=== PATIENT | female | born 1940 | race African-American/Black ===

== ENCOUNTER 2019-05-25 00:05 | Inpatient (IN) | payer OTHER ==
[2019-05-25] MEDS ORDERED: NOREPINEPHRINE 4mg/D5W 250mL 4 MG/250 ML BAG IV ONE ×3 (00:29→06:16)
[2019-05-25 01:00] LABS: Absolute Lymphocytes (CBC) 3.2 K/uL (0.7-4.9); Basophils % 0.4 % (0-1.3); Lymphocytes % 36.4 % (15.3-44.8); MPV 10.3 fL (7.6-11.3); RBC Red Blood Cell Count 3.27 M/uL (3.86-4.86)
[2019-05-25 01:03] LABS: Protime INR 1.18
[2019-05-25 01:12] LABS: Blood Gas Oxyhemoglobin 96.4 % (94-97); Blood O2 Saturation 97.1 % (92-98.5)
--- NOTE | 2019-05-25 01:12 | EDPHYS ---
Physician Documentation [facility] Name: Astrid Auguste Age: 79 yrs Sex: Female : 1940 Arrival Date: 05/25/2019 Time: 00:07 Bed 3 Private MD: ED Physician Steven Boles HPI: 05/25 03:25 This 79 yrs old Black Female presents to ER via EMS with complaints of CPR. kdr 03:25 Preceding the arrest, the patient collapsed, was dyspneic. The arrest occurred at home. kdr Pre-hospital course: The arrest was witnessed Bystanders at the scene performed CPR. EMS care prior to arrival: initiation of ACLS, peripheral IV, intubation with a LMA, oxygen, by BVM to assist ventilations. 0 minutes elapsed prior to ACLS. ACLS has been in progress for 35 minutes. It is unknown whether or not the patient has had similar symptoms in the past. It is unknown whether or not the patient has recently seen a physician. Historical: - Allergies: 00:58 Unable to obtain; tr5 - Home Meds: 00:58 Unable to obtain [Active]; tr5 - PMHx: 00:58 Unable to obtain; tr5 - PSHx: 00:58 Unable to obtain; tr5 - Immunization history:: Unable to obtain. - Social history:: Smoking status: unknown. - Code Status:: unknown. - Ebola Screening: : Unable to complete screening because patient is unresponsive. ROS: 03:25 Constitutional: Unobtainable secondary to unreponsive and intubated Eyes: Negative for kdr injury, pain, redness, and discharge, ENT: Negative for injury, pain, and discharge, Neck: Negative for injury, pain, and swelling, Cardiovascular: Negative for chest pain, palpitations, and edema, Abdomen/GI: Negative for abdominal pain, nausea, vomiting, diarrhea, and constipation, Back: Negative for injury and pain, : Negative for injury, bleeding, discharge, and swelling, MS/Extremity: Negative for injury and deformity, Skin: Negative for injury, rash, and discoloration, Neuro: Negative for headache, weakness, numbness, tingling, and seizure activity. Psych: Negative for depression, anxiety, suicide ideation, homicidal ideation, and hallucinations, Allergy/Immunology: Negative for hives, rash, and allergies, Endocrine: Negative for neck swelling, polydipsia, polyuria, polyphagia, and marked weight changes, Hematologic/Lymphatic: Negative for swollen nodes, abnormal bleeding, and unusual bruising. 03:25 Constitutional: Negative for fever, chills, and weight loss. 03:25 Respiratory: Positive for shortness of breath. Exam: 03:29 Constitutional: This is a well developed, well nourished patient who is unresponsive. kdr Head/Face: Normocephalic, atraumatic. Eyes: Pupils equal round and poorly reactive to light, Lids and lashes normal. . Periorbital areas with no swelling, redness, or edema. Neck: Trachea midline, no thyromegaly or masses palpated, and no cervical lymphadenopathy. Supple, full range of motion without nuchal rigidity, or vertebral point tenderness. No Meningismus. Chest/axilla: Normal chest wall appearance and motion. Nontender with no deformity. No lesions are appreciated. Abdomen/GI: Soft, non-tender, with normal bowel sounds. No distension or tympany. No guarding or rebound. No evidence of tenderness throughout. Back: No spinal tenderness. No costovertebral tenderness. Full range of motion. Skin: Warm, dry with normal turgor. Normal color with no rashes, no lesions, and no evidence of cellulitis. MS/ Extremity: Pulses equal, no cyanosis. Neurovascular intact. Full, normal range of motion. 03:29 Cardiovascular: Rate: variable. 03:29 Respiratory: Ventilated . 04:32 Cardiovascular: Rhythm: irregular, Pulses: weak, not palpable, Edema: is not kdr appreciated. Vital Signs: 00:10 Pulse 53; Resp 16 A; tr5 00:14 BP 104 / 68; Pulse 73; Resp 15 A; tr5 00:17 BP 148 / 48; Pulse 71; Resp 16 A; Pulse Ox 100% on ETT ambu; tr5 00:24 BP 112 / 95; Pulse 67; Resp 15 A; Temp 93.5(C); Pulse Ox 99% on ETT ambu; tr5 00:27 BP 55 / 33; Pulse 62; Resp 14 A; Temp 95.4(C); Pulse Ox 97% on ETT vent; tr5 00:31 BP 42 / 24; Pulse 52 MON; Resp 14; Temp 97.3(C); Pulse Ox 94% on ETT vent; tr5 00:38 BP 121 / 46; Pulse 81 MON; Resp 22 A; Temp 98.3(C); Pulse Ox 100% on ETT vent; tr5 00:45 BP 69 / 38; Pulse 55 MON; Resp 16 A; Temp 98.3(C); Pulse Ox 100% on ETT vent; tr5 01:00 BP 73 / 56; Pulse 73 MON; Resp 16 A; Temp 98.4(C); Pulse Ox 99% on ETT vent; tr5 01:10 BP 103 / 44; Pulse 50 MON; Resp 16 A; Temp 98.2(C); Pulse Ox 100% on ETT vent; tr5 01:20 BP 125 / 54; Pulse 58; Resp 16 A; Temp 97.9(C); Pulse Ox 99% on ETT vent; tr5 01:30 BP 117 / 46; Pulse 61; Resp 16; Temp 97(C); Pulse Ox 99% on ETT vent; tr5 01:45 BP 117 / 45; Pulse 64; Resp 16 A; Temp 96.3(C); Pulse Ox 100% on ETT vent; tr5 02:00 BP 118 / 46; Pulse 60 MON; Resp 18 A; Temp 96.1(C); Pulse Ox 100% on ETT vent; tr5 02:15 BP 118 / 34; Pulse 56; Resp 18 A; Temp 96.1(C); Pulse Ox 100% on ETT vent; tr5 02:30 BP 118 / 49; Pulse 59; Resp 16 A; Temp 96.1(C); Pulse Ox 100% on ETT vent; tr5 02:45 BP 117 / 43; Pulse 58; Resp 16 A; Temp 96.2(C); Pulse Ox 100% on ETT vent; tr5 03:00 BP 111 / 42; Pulse 45; Resp 16 A; Pulse Ox 100% on ETT vent; tr5 03:15 BP 107 / 46; Pulse 57; Resp 17 A; Temp 96.2(C); Pulse Ox 99% on ETT vent; tr5 Jack Coma Score: 00:30 Eye Response: none(1). Verbal Response: none(1). Motor Response: none(1). Total: 3. tr5 Ventilator: 00:14 Fi02: 100%; Rate: 14min; Peep: 5cm; ET tube: 7.5 mm; tr5 00:45 Fi02: 100%; Rate: 16min; Peep: 5cm; ET tube: 7.5 mm; tr5 Procedures: 03:29 CPR: See CPR flow sheet. Initial patient assessment: unresponsive, intubated, The kdr presenting cardiac rhythm is PEA. the patient was intubated prior to arrival, ventilations per thumper, Tomás tube [employer], Compressions: began prior to arrival. Meds given: Epinephrine X 3. Intubation: Ventilated with 100% NRB prior to procedure. O2 saturation prior to procedure was 90 %. Intubated orally using # 4 Jazlyn blade with 7.0 mm ETT. Successful on third attempt. Ventilated with Ambu bag. ventilator. Tube secured with ETT medeiros at center of mouth measured 23 cm at teeth. Placement verified by CO2 detector with (+) color change, auscultating bilateral breath sounds, O2 saturation after procedure was 100 %. Patient tolerated well. MDM: 01:11 Patient medically screened. kdr 03:29 Data reviewed: vital signs, nurses notes, lab test result(s), radiologic studies. kdr Counseling: I had a detailed discussion with the patient and/or guardian regarding: the historical points, exam findings, and any diagnostic results supporting the discharge/admit diagnosis, lab results, radiology results, the need for further work-up and treatment in the hospital. 05/25 00:27 Order name: Basic Metabolic Panel [facility] 05/25 00:27 Order name: CBC with Diff [facility] 05/25 00:27 Order name: LFT's [facility] 05/25 00:27 Order name: Magnesium [facility] 05/25 00:27 Order name: NT PRO-BNP [facility] 05/25 00:27 Order name: PT-INR; Complete Time: 02:02 [facility] 05/25 00:27 Order name: Troponin (emerg Dept Use Only) [facility] 05/25 01:07 Order name: Manual Differential [facility] 05/25 01:10 Order name: ABG Arterial Blood Gas; Complete Time: 02:02 [facility] 05/25 01:18 Order name: Glucose, Ancillary Testing; Complete Time: 02:02 [facility] 05/25 02:01 Order name: CKMB Creatine Kinase MB [facility] 05/25 02:02 Order name: Protime (+INR) [facility] 05/25 02:02 Order name: T4 Free [facility] 05/25 00:27 Order name: XRAY Chest (1 view) [facility] 05/25 02:02 Order name: Thyroid Stimulating Hormone [facility] 05/25 02:02 Order name: CKMB Creatine Kinase MB [facility] 05/25 02:02 Order name: CKMB Creatine Kinase MB [facility] 05/25 02:02 Order name: Troponin I [facility] 05/25 02:02 Order name: Troponin I [facility] 05/25 02:02 Order name: Troponin I [facility] 05/25 00:27 Order name: EKG; Complete Time: 00:29 05/25 00:27 Order name: Cardiac monitoring; Complete Time: 01:38 05/25 00:27 Order name: EKG - Nurse/Tech; Complete Time: 01:38 05/25 00:27 Order name: IV Saline Lock; Complete Time: 01:38 05/25 00:27 Order name: Labs collected and sent; Complete Time: 01:38 05/25 00:27 Order name: O2 Per Protocol; Complete Time: 01:38 05/25 00:27 Order name: O2 Sat Monitoring; Complete Time: 01:37 05/25 02:02 Order name: NPO [facility] 05/25 02:03 Order name: EKG Electrocardiogram [facility] 05/25 02:03 Order name: EKG Electrocardiogram [facility] 05/25 02:03 Order name: EKG Electrocardiogram [facility] Administered Medications: 00:08 Drug: EPINEPHrine 0.1mg/mL 1:10,000 1 mg Route: IVP; Site: left antecubital; tr5 00:10 Follow up: Response: No change in condition tr5 00:08 Drug: NS 0.9% 1000 ml Route: IV; Rate: 1 bolus; Site: left antecubital; tr5 00:13 Drug: EPINEPHrine 0.1mg/mL 1:10,000 1 mg Route: IVP; Site: left antecubital; tr5 00:15 Follow up: Response: No adverse reaction tr5 00:33 Drug: EPINEPHrine 0.1mg/mL 1:10,000 1 mg Route: IVP; Site: left antecubital; tr5 00:40 Follow up: Response: No adverse reaction tr5 00:36 Drug: Levophed (4 mg/250 mL D5W 4 mcg/min Route: IV; Rate: calculated rate; Site: right tr5 femoral; 00:44 Drug: Sodium Bicarbonate 1 amp Route: IVP; Site: left antecubital; tr5 00:50 Follow up: Response: No adverse reaction tr5 00:46 Drug: EPINEPHrine 0.1mg/mL 1:10,000 1 mg Route: IVP; Site: left antecubital; tr5 00:50 Follow up: Response: No adverse reaction tr5 00:50 Drug: Dopamine drip 5 mcg/kg/min - (DOPamine 400 mg, D5W 250 ml) Route: IV; Rate: tr5 calculated rate; Site: right femoral; 01:05 Drug: Sodium Bicarbonate 2 amp Route: IVP; Site: left antecubital; tr5 01:41 Follow up: Response: No adverse reaction tr5 Point of Care Testing: Blood Glucose: 00:58 Blood Glucose: 356 mg/dL; tr5 Ranges: Critical Glucose Levels:Adult <50 mg/dl or >400 mg/dl <40 mg/dl or >180 mg/dl Disposition: 04:37 Critical Care:. kdr Disposition: 05/25/19 01:11 Hospitalization ordered by Cesar Medel for Inpatient Admission. Preliminary diagnosis is Cardiopulmonary Arrest. - Bed requested for Intensive Care Unit. - Status is Inpatient Admission. tr5 - Condition is Critical. - Problem is new. - Symptoms have improved. UTI on Admission? No Critical care time excluding procedures: 04:37 Critical care time: Bedside Care: 40 minutes, Consultation: 10 minutes, Family kdr Intervention: 10 minutes. Total time: 60 minutes Signatures: Dispatcher [employer] [facility] Steven Boles MD MD kdr Garcia, Cindy, RN RN cg Bibiana Trevino Tommie, RN RN tr5 Corrections: (The following items were deleted from the chart) 02:04 02:01 Blood Culture ordered. [facility] 02:19 01:11 Hospitalization Ordered by Cesar Medel for Inpatient Admission. Preliminary cg diagnosis is Cardiopulmonary Arrest. Bed requested for Intensive Care Unit. Status is Inpatient Admission. Condition is Critical. Problem is new. Symptoms have improved. UTI on Admission? No. kdr 03:41 02:19 05/25/2019 01:11 Hospitalization Ordered by Cesar Medel for Inpatient tr5 Admission. Preliminary diagnosis is Cardiopulmonary Arrest. Bed requested for Intensive Care Unit. Status is Inpatient Admission. Condition is Critical. Problem is new. Symptoms have improved. UTI on Admission? No. cg 04:37 03:29 Constitutional: This is a well developed, well nourished patient who is awake, kdr alert, and in no acute distress. Head/Face: Normocephalic, atraumatic. Eyes: Pupils equal round and reactive to light, extra-ocular motions intact. Lids and lashes normal. Conjunctiva and sclera are non-icteric and not injected. Cornea within normal limits. Periorbital areas with no swelling, redness, or edema. Neck: Trachea midline, no thyromegaly or masses palpated, and no cervical lymphadenopathy. Supple, full range of motion without nuchal rigidity, or vertebral point tenderness. No Meningismus. Chest/axilla: Normal chest wall appearance and motion. Nontender with no deformity. No lesions are appreciated. Abdomen/GI: Soft, non-tender, with normal bowel sounds. No distension or tympany. No guarding or rebound. No evidence of tenderness throughout. Back: No spinal tenderness. No costovertebral tenderness. Full range of motion. Skin: Warm, dry with normal turgor. Normal color with no rashes, no lesions, and no evidence of cellulitis. MS/ Extremity: Pulses equal, no cyanosis. Neurovascular intact. Full, normal range of motion. kdr
--- NOTE | 2019-05-25 01:12 | ER ---
Nurse's Notes [facility] Name: Astrid Auguste Age: 79 yrs Sex: Female : 1940 Arrival Date: 05/25/2019 Time: 00:07 Bed 3 Private MD: Diagnosis: Cardiopulmonary Arrest Presentation: 05/25 00:02 Presenting complaint: EMS states: Pt called EMS and upon arrival patient was alone and tr5 in respiratory distress. Upon arrival pt appeared to be choking and was foaming at the mouth. Witnessed cardiac arrest and pt was down at 2327. CPR was started. 5 rounds of epi given. Size 5 david tube inserted. 20 G IV to L AC initiated. BG 228. Pt arrived to ER with Jonny 3 machine on and compressions in progress. Care prior to arrival: Oral airway placed, CPR via thumper Placed on backboard. Medication(s) given: Epi X5 IV initiated. 20 GA, in the left antecubital area. 00:02 Method Of Arrival: EMS: [facility] tr5 00:02 Acuity: CYNDI 1 tr5 00:02 Compressions began prior to arrival. tr5 00:02 Transition of care: patient was not received from another setting of care. Onset of tr5 symptoms was May 25, 2019. Risk Assessment: Do you want to hurt yourself or someone else? Unable to obtain. Initial Sepsis Screen: Does the patient have a suspected source of infection? No. Patient's initial sepsis screen is negative. 01:36 Initial Sepsis Screen: Does the patient meet any 2 criteria?. tr5 Triage Assessment: 00:30 Pain: Unable to use pain scale. Patient is unresponsive. tr5 Historical: - Allergies: 00:58 Unable to obtain; tr5 - Home Meds: 00:58 Unable to obtain [Active]; tr5 - PMHx: 00:58 Unable to obtain; tr5 - PSHx: 00:58 Unable to obtain; tr5 - Immunization history:: Unable to obtain. - Social history:: Smoking status: unknown. - Code Status:: unknown. - Ebola Screening: : Unable to complete screening because patient is unresponsive. Screenin:45 Abuse screen: Unable to obtain. Nutritional screening: Unable to obtain. Tuberculosis tr5 screening: Unable to obtain. 00:45 Fall Risk None identified. tr5 Assessment: 00:02 CPR assessment: unresponsive, intubated, pulses absent w/ compressions. Cardiac rhythm tr5 is PEA. General: Appears distressed, Behavior is unresponsive. Neuro: Level of Consciousness is unresponsive, Oriented to none. EENT: No deficits noted. Cardiovascular: Heart tones absent Pulses are absent in right radial artery, right brachial artery, right femoral artery, right posterior tibial artery, left radial artery, left brachial artery, left femoral artery, left posterior tibial artery, left carotid pulse and right carotid pulse Rhythm is PEA. Respiratory: Airway via oral intubation Breath sounds are absent bilaterally. GI:. GI: No signs and/or symptoms were reported involving the gastrointestinal system. : No signs and/or symptoms were reported regarding the genitourinary system. Derm: Skin is clammy, Skin is pale, Skin temperature is cool. 01:00 Reassessment: Pt lying quietly, intubated and unresponsive. ET tube in place. NG tube tr5 in L nares to low intermittent suction. IV sites patent and intact. Coffman catheter in place with no drainage noted. Will continue to monitor. 02:00 Reassessment: Pt's family at bedside. Pt laying in bed quiet and unresponsive. ET tube tr5 in place. NG tube in place. IV lines patent and intact. Will continue to monitor. 03:00 Reassessment: Pt lying quietly in bed. Pt's family at bedside. Pt is intubated and tr5 unresponsive. ET tube in place. NG tube in place. IV lines patent and intact. Will continue to monitor. Vital Signs: 00:10 Pulse 53; Resp 16 A; tr5 00:14 BP 104 / 68; Pulse 73; Resp 15 A; tr5 00:17 BP 148 / 48; Pulse 71; Resp 16 A; Pulse Ox 100% on ETT ambu; tr5 00:24 BP 112 / 95; Pulse 67; Resp 15 A; Temp 93.5(C); Pulse Ox 99% on ETT ambu; tr5 00:27 BP 55 / 33; Pulse 62; Resp 14 A; Temp 95.4(C); Pulse Ox 97% on ETT vent; tr5 00:31 BP 42 / 24; Pulse 52 MON; Resp 14; Temp 97.3(C); Pulse Ox 94% on ETT vent; tr5 00:38 BP 121 / 46; Pulse 81 MON; Resp 22 A; Temp 98.3(C); Pulse Ox 100% on ETT vent; tr5 00:45 BP 69 / 38; Pulse 55 MON; Resp 16 A; Temp 98.3(C); Pulse Ox 100% on ETT vent; tr5 01:00 BP 73 / 56; Pulse 73 MON; Resp 16 A; Temp 98.4(C); Pulse Ox 99% on ETT vent; tr5 01:10 BP 103 / 44; Pulse 50 MON; Resp 16 A; Temp 98.2(C); Pulse Ox 100% on ETT vent; tr5 01:20 BP 125 / 54; Pulse 58; Resp 16 A; Temp 97.9(C); Pulse Ox 99% on ETT vent; tr5 01:30 BP 117 / 46; Pulse 61; Resp 16; Temp 97(C); Pulse Ox 99% on ETT vent; tr5 01:45 BP 117 / 45; Pulse 64; Resp 16 A; Temp 96.3(C); Pulse Ox 100% on ETT vent; tr5 02:00 BP 118 / 46; Pulse 60 MON; Resp 18 A; Temp 96.1(C); Pulse Ox 100% on ETT vent; tr5 02:15 BP 118 / 34; Pulse 56; Resp 18 A; Temp 96.1(C); Pulse Ox 100% on ETT vent; tr5 02:30 BP 118 / 49; Pulse 59; Resp 16 A; Temp 96.1(C); Pulse Ox 100% on ETT vent; tr5 02:45 BP 117 / 43; Pulse 58; Resp 16 A; Temp 96.2(C); Pulse Ox 100% on ETT vent; tr5 03:00 BP 111 / 42; Pulse 45; Resp 16 A; Pulse Ox 100% on ETT vent; tr5 03:15 BP 107 / 46; Pulse 57; Resp 17 A; Temp 96.2(C); Pulse Ox 99% on ETT vent; tr5 Jack Coma Score: 00:30 Eye Response: none(1). Verbal Response: none(1). Motor Response: none(1). Total: 3. tr5 ED Course: 00:02 Inserted saline lock: 20 gauge in left antecubital area, using aseptic technique. tr5 Accessed Central line. 00:02 Arm band placed on. tr5 00:07 Patient arrived in ED. fc 00:07 EKG done, by ED staff. tr5 00:14 Assisted provider with central line placement. Set up central line tray. Triple lumen tr5 line placed in right femoral. Line placed by Steven Boles MD Placement verified by CXR, Dressed with Tegaderm, Blood was collected. Patient tolerated. 00:14 Assisted provider with intubation using 7.5 mm ETT via oral route. ET tube secured at tr5 23cm at the teeth. Intubated by Steven Bloes MD Placement verified by CO2 detector w/ + color change, Patient tolerated. Intubation: 7.5 Fr. ETT placed orally. Performed by Steven Boles MD Successful on first attempt. Placement verified by CO2 detector w/ + color change, auscultating bilateral breath sounds, Ventilated with ventilator. 00:18 NGT: inserted 14 Fr. via left nare. tr5 00:19 Speci-cath kit inserted, using sterile technique, 16 Fr., returned poly urine. tr5 00:20 marketing rotation associate on. Pulse ox on. NIBP on. tr5 00:40 ABG drawn. by RT staff. tr5 00:42 Edil Ramirez, RN is Primary Nurse. tr5 00:45 Patient has correct armband on for positive identification. Placed in gown. Bed in low tr5 position. Adult w/ patient. 00:46 Steven Boles MD is Attending Physician. kdr 00:54 Triage completed. tr5 00:55 Initial lab(s) drawn, by ED staff, sent to lab. tr5 00:55 X-ray(s) taken. tr5 00:57 X-ray completed. Portable x-ray completed in exam room. Patient tolerated procedure kw well. 00:59 XRAY Chest (1 view) In Process Unspecified. EDMS 01:10 Cesar Medel is Hospitalizing Provider. kdr 02:02 Warm blanket given. Elaine lazo applied to patient. tr5 03:40 Patient admitted, IV remains in place. tr5 Administered Medications: 00:08 Drug: EPINEPHrine 0.1mg/mL 1:10,000 1 mg Route: IVP; Site: left antecubital; tr5 00:10 Follow up: Response: No change in condition tr5 00:08 Drug: NS 0.9% 1000 ml Route: IV; Rate: 1 bolus; Site: left antecubital; tr5 00:13 Drug: EPINEPHrine 0.1mg/mL 1:10,000 1 mg Route: IVP; Site: left antecubital; tr5 00:15 Follow up: Response: No adverse reaction tr5 00:33 Drug: EPINEPHrine 0.1mg/mL 1:10,000 1 mg Route: IVP; Site: left antecubital; tr5 00:40 Follow up: Response: No adverse reaction tr5 00:36 Drug: Levophed (4 mg/250 mL D5W 4 mcg/min Route: IV; Rate: calculated rate; Site: right tr5 femoral; 00:44 Drug: Sodium Bicarbonate 1 amp Route: IVP; Site: left antecubital; tr5 00:50 Follow up: Response: No adverse reaction tr5 00:46 Drug: EPINEPHrine 0.1mg/mL 1:10,000 1 mg Route: IVP; Site: left antecubital; tr5 00:50 Follow up: Response: No adverse reaction tr5 00:50 Drug: Dopamine drip 5 mcg/kg/min - (DOPamine 400 mg, D5W 250 ml) Route: IV; Rate: tr5 calculated rate; Site: right femoral; 01:05 Drug: Sodium Bicarbonate 2 amp Route: IVP; Site: left antecubital; tr5 01:41 Follow up: Response: No adverse reaction tr5 Point of Care Testing: Blood Glucose: 00:58 Blood Glucose: 356 mg/dL; tr5 Ranges: Ventilator: 00:14 Fi02: 100%; Rate: 14min; Peep: 5cm; ET tube: 7.5 mm; tr5 00:45 Fi02: 100%; Rate: 16min; Peep: 5cm; ET tube: 7.5 mm; tr5 Outcome: 00:50 Outcome Resuscitation successful tr5 01:11 Decision to Hospitalize by Provider. kdr 03:30 Patient left the ED. tr5 03:39 Admitted to ICU accompanied by nurse, accompanied by tech, via stretcher, with oxygen, tr5 on monitor, with chart, Report called to Alexis CAMPO 03:39 Condition: stable tr5 03:39 Instructed on the need for admit. Signatures: Dispatcher [employer] [facility] Steven Boles MD MD kdr Chretien, Felicia, RN RN Hui Lewis Tommie, RN RN tr5 Corrections: (The following items were deleted from the chart) 01:20 00:44 Sodium Bicarbonate 1 amp IVP in left antecubital tr5 tr5 01:35 00:45 BP 69 / 38; Pulse 55bpm; MonitorResp 17bpm; Assisted; Pulse Ox 100% ET / tr5 Ventilator; Temp 98.3F Catheter; tr5 01:35 01:00 BP 73 / 56; Pulse 73bpm; MonitorResp 15bpm; Assisted; Pulse Ox 99% ET / tr5 Ventilator; tr5 01:58 01:00 BP 73 / 56; Pulse 73bpm; MonitorResp 16bpm; Assisted; Pulse Ox 99% ET / tr5 Ventilator; tr5 :58 01:20 BP 125 / 54; Pulse 58bpm; Resp 16bpm; Assisted; Pulse Ox 99% ET / Ventilator; tr5 tr5 :58 01:30 BP 117 / 46; Pulse 61bpm; Resp 16bpm; Pulse Ox 99% ET / Ventilator; tr5 tr5 01:58 01:10 BP 103 / 44; Pulse 50bpm; MonitorResp 16bpm; Assisted; Pulse Ox 100% ET / tr5 Ventilator; tr5 02:01 01:59 BP 117 / 45; Pulse 64bpm; Resp 16bpm; Assisted; Pulse Ox 100% ET / Ventilator; tr5 Temp 96.3F Catheter; tr5 02:16 02:00 Reassessment: No changes from previously documented assessment. Patient and/or tr5 family updated on plan of care and expected duration. Pain level reassessed. tr5 02:16 01:30 Reassessment: tr5 tr5 02:16 01:00 Reassessment: No changes from previously documented assessment. Patient and/or tr5 family updated on plan of care and expected duration. Pain level reassessed. tr5 02:26 00:02 Presenting complaint: EMS states: Pt called EMS and only one at scene. Upon tr5 arrival pt appeared to be choking and was foaming at the mouth. Witnessed cardiac arrest and pt was down at 2327. CPR was started. 5 rounds of epi given. Size 5 david tube inserted. 20 G IV to L AC initiated. BG 228. Pt arrived to ER with Jonny 3 machine on and compressions in progress. tr5 02:00 Reassessment: No changes from previously documented assessment. Patient and/or tr5 family updated on plan of care and expected duration. Pain level reassessed. Coffman catheter in place. NG tube in place. IV and central line patent and intact. Will continue to monitor. tr5 01:00 Reassessment: No changes from previously documented assessment. Patient and/or tr5 family updated on plan of care and expected duration. Pain level reassessed. Pt sedated and intubated. Pt does not appear to be in any distress. Will continue to monitor. tr5 02:00 Reassessment: Pt's family at bedside. Pt laying in bed quiet and unresponsive. ET tr5 tube in place. Lung sounds clear bilaterally. NG tube in place. IV lines patent and intact. Will continue to monitor. tr5 01:00 Reassessment: Pt lying quietly, intubated and unresponsive. Pt's lungs are clear tr5 bilaterally. ET tube in place. NG tube in L nares to low intermittent suction. IV sites patent and intact. Coffman catheter in place with no drainage noted. Will continue to monitor. tr5 03: 03:41 Patient left the ED. tr5 tr5
[2019-05-25] MEDS ORDERED: ONDANSETRON 4 MG/2 ML VIAL IV PRN (01:52)
[2019-05-25] MEDS ORDERED: NA CHLORIDE 0.9% 1,000 ML IV SCH ×2 (02:00→05:00)
[2019-05-25 02:08] LABS: ALT/SGPT 42 U/L (12-78); AST/SGOT 49 U/L (15-37); Albumin 2.4 g/dL (3.4-5.0); Alkaline Phosphatase 75 U/L (45-117); BUN Blood Urea Nitrogen 39 mg/dL (7-18); Bilirubin Direct < 0.1 mg/dL (0-0.2); Bilirubin Total 0.2 mg/dL (0.2-1.0); Glucose Level 398 mg/dL (74-106); Magnesium 2.1 mg/dL (1.8-2.4); NT PRO-BNP 2674 pg/mL (<450); Potassium 3.5 mmol/L (3.5-5.1); Protein, Total 5.7 g/dL (6.4-8.2); Sodium Level 141 mmol/L (136-145); Troponin (Emerg Dept Use Only) 0.11 ng/mL (0.0-0.045)
[2019-05-25 02:09] LABS: Bicarbonate 12 mmol/L (21-32)
[2019-05-25] MEDS: ALBUTEROL 2.5 MG/3 ML NEB SOL NEB SCH ×2 (02:20→08:00)
[2019-05-25] MEDS: IPRATROPIUM BROM 0.5MG/2.5ML NEB SCH ×4 (02:20→20:00)
--- NOTE | 2019-05-25 02:30 | P.HP ---
Certification for Inpatient Patient admitted to: Inpatient With expected LOS: >2 Midnights Practitioner: I am a practitioner with admitting privileges, knowledge of patient current condition, hospital course, and medical plan of care. Services: Services provided to patient in accordance with Admission requirements found in Title 42 Section 412.3 of the Code of Federal Regulations Patient History Date of Service: 05/25/19 Reason for admission: PEA History of Present Illness: 79-year-old woman was brought to the emergency department by EMS after a witnessed PEA at home. Per report, patient called EMS because she was not feeling well, she became unresponsive followed by PEA when EMS arrived. ACLS was carried out for about 30 min per report. An airway was placed by EMS during the CPR. She was still receiving CPR on arrival to the ED. She regained her pulse shortly after arrival to the ED. The airway was removed and patient then intubated. She has since not regained consciousness and remain unresponsive. I met her daughter and son by her bedside. Daughter reported a history heart disease and borderline diabetes. She also reported patient had no specific complaint except not feeling well when they saw her yesterday in the afternoon. EKG in the ED demonstrated left bundle-branch, chest x-ray demonstrated pulmonary edema. Pinkish frothy secretions were suctioned from her trachea during intubation. Her pH was less than 7. Patient was given 4 amps of bicarb in the ED. Right femoral central line was placed the patient started on 2 pressors. She has has no spontaneous breathing and systolic blood pressure is in the 100s on the two vasopressors. Allergies levofloxacin [From Levaquin] Allergy (Intermediate, Verified 09/08/12 01:53) Hives/Rash sulfamethoxazole [From Bactrim] Allergy (Intermediate, Verified 09/08/12 01:53) Hives/Rash trimethoprim [From Bactrim] Allergy (Intermediate, Verified 09/08/12 01:53) Hives/Rash - Past Medical/Surgical History Diabetic: Yes -: Heart disease -: Borderline diabetes -: Family denies any surgical history - Social History Smoking Status: Never smoker Alcohol use: No Place of Residence: Home Review of Systems is unable to be obtained (Due to unresponsiveness) Physical Examination - Physical Exam General: Unresponsive, Obese HEENT: Atraumatic, Normocephalic, Other (Dilated pupils unresponsive to light bilaterally. Unable to assess EOMI.) Neck: Supple, 2+ carotid pulse no bruit, JVD not distended, No Thyromegaly Respiratory: Crackles/rales Cardiovascular: Regular rate/rhythm, No murmurs, Edema (Trace bilateral lower extremity edema) Capillary refill: Other (Cold peripheries) Gastrointestinal: Normal bowel sounds, Soft and benign, Non-distended Musculoskeletal: No swelling, No erythema Integumentary: No rashes, No breakdown Neurological: Other (Unresponsive, no limb movement.) - Studies Laboratory Data (last 24 hrs) 05/25/19 00:44: PT 13.8 H, INR 1.18 05/25/19 00:44: WBC 8.9, Hgb 9.6 L, Hct 32.0 L, Plt Count 139 L 05/25/19 00:44: Sodium 141, Potassium 3.5, BUN 39 H, Creatinine 1.59 H, Glucose 398 H, Magnesium 2.1, Total Bilirubin 0.2, AST 49 H, ALT 42, Alkaline Phosphatase 75 Imagings Data: Chest x-ray: Pulmonary edema EKG: LBBB Assessment and Plan - Problems (Diagnosis) (1) Cardiac arrest with pulseless electrical activity Current Visit: Yes Status: Acute (2) Acute respiratory failure with hypoxia Current Visit: Yes Status: Acute (3) Diabetes mellitus type 2 in obese Current Visit: Yes Status: Acute (4) Left bundle branch block Current Visit: Yes Status: Acute (5) Anoxic encephalopathy Current Visit: Yes Status: Acute (6) Metabolic acidosis Current Visit: Yes Status: Acute (7) Elevated troponin Current Visit: Yes Status: Acute - Plan Admit to ICU Neuro checks. Watch for seizures/myoclonus IV hydrate with normal saline Status 4 Amps Bicarb. Recheck BMP and arterial blood gas and treat acidosis with bicarb as needed. Cannot give aspirin or anticoagulation now due to blood-tinged secretions suctioned from the trachea. This could indicate pulmonary hemorrhage Empiric IV antibiotics Continue mechanical ventilators Continue vasopressors. Very poor prognosis with marginal chance of meaningful recovery. Prognosis has been communicated to the family. Family want to continue aggressive measures for now. Continue to trend troponin. Keep NPO for now. Cardiology consult Neurology consult. - Advance Directives Does patient have a Living Will: No Does patient have a Durable POA for Healthcare: No - Code Status/Comfort Care Code Status: Full Code Critical Care: Yes (68) Time Spent Managing Pts Care (In Minutes): 76
[2019-05-25] MEDS ORDERED: ALBUTEROL 2.5 MG/3 ML NEB SOL ONE (02:42)
[2019-05-25] MEDS ORDERED: IPRATROPIUM BROM 0.5MG/2.5ML ONE (02:42)
[2019-05-25 03:18] LABS: Blood Morphology Comment NOTED (NOT SEEN); Burr Cells 3+; Platelet Estimate ADEQ; Polychromasia 1+
[2019-05-25] MEDS: NOREPINEPHRINE 4 MG in D5W 250 ML IV PRN ×2 (03:30→06:19)
[2019-05-25 04:11] LABS: Protime INR 1.29
[2019-05-25 04:39] LABS: CKMB Creatine Kinase MB 8.6 ng/mL (0.3-3.6)
[2019-05-25 04:40] LABS: Troponin I 1.09 ng/mL (0.0-0.045)
[2019-05-25 04:41] LABS: Thyroid Stimulating Hormone 5.67 uIU/mL (0.360-3.740)
[2019-05-25 05:08] LABS: Phosphorus 8.5 mg/dL (2.5-4.9); Potassium 4.1 mmol/L (3.5-5.1)
[2019-05-25] MEDS: DOPAMINE/D5W 400 MG/250 ML BAG IV PRN ×5 (05:25→22:34)
[2019-05-25] MEDS ORDERED: D50W 25 GM/50 ML SYRINGE IV PRN (05:33)
[2019-05-25] MEDS ORDERED: GLUCAGON 1 MG/VIAL IM PRN (05:33)
[2019-05-25 05:41] LABS: Arterial Blood Carboxyhemoglob 0.6 % (0-1.5); Blood Gas Oxyhemoglobin 88.9 % (94-97); Blood O2 Saturation 90.5 % (92-98.5)
[2019-05-25] MEDS: INSULIN -REGULAR HUMAN 50 UNIT/0.5 ML ML SQ SCH ×3 (06:19→18:26)
[2019-05-25 06:51] LABS: Urine Appearance TURBID; Urine Bilirubin NEGATIVE (NEG); Urine Blood 3+ (NEG); Urine Color YELLOW; Urine Glucose 2+ (NEG); Urine Protein 3+ (NEG); Urine Specific Gravity 1.015 (1.005-1.030); Urine Urobilinogen 0.2 mg/dL (0.2-1.0)
[2019-05-25] MEDS ORDERED: VANCOMYCIN 1 GM in NA CHLORIDE 0.9% 250 ML IVPB SCH (07:00)
--- NOTE | 2019-05-25 07:13 | EKG ---
Test Date: 2019-05-25 Test Time: 00:07:08 Claims Adjuster Supervisor: TRA MEASUREMENT RESULTS: Intervals: Rate: 42 VT: QRSD: 162 QT: 584 QTc: 487 [place]: P: VT: QRS: 70 T: 146 INTERPRETIVE STATEMENTS: Atrial fibrillation with slow ventricular response with a competing junctional pacemaker Left bundle branch block Abnormal ECG No previous ECG available for comparison Electronically Signed On 05-25-19 07:13:06 CDT by Odilon Cárdenas
[2019-05-25 07:22] LABS: Urine Amorphous Sediment 2+ /HPF (NONE SEEN); Urine Bacteria 20-50 /HPF (<20); Urine Culture Reflex Order REFLEXED
[2019-05-25] MEDS ORDERED: ATROPINE SULFATE 1 MG/ML INJ ONE (07:37)
[2019-05-25] MEDS ORDERED: ATROPINE SULFATE 1 MG/ML INJ IV ONE (07:56)
--- NOTE | 2019-05-25 07:57 | RAD REPORT ---
EXAM DESCRIPTION: Jada Single View05/25/2019 12:59 am CLINICAL HISTORY: Chest pain COMPARISON: none FINDINGS: Moderate bilateral pulmonary opacities. The heart is mildly enlarged. Endotracheal nasogastric tubes in good position IMPRESSION: Moderate bilateral pulmonary opacities probably represent pulmonary edema
[2019-05-25] MEDS ORDERED: VANCOMYCIN 1.5 GM in NA CHLORIDE 0.9% 500 ML IVPB SCH (08:00)
[2019-05-25] MEDS: PIPER/TAZO/NS 2.25gm 2.25 GM/50 ML BAG IV SCH ×3 (08:02→18:00)
--- NOTE | 2019-05-25 08:14 | CON ---
Mrs. Auguste is in the intensive care unit, comatose, intubated. I am asked to evaluate her heart cond ition. We do not know much about her past history. No other family members. There is some kind of heart disease, but I do not have any details. The patient called EMS. By the time she got there, she was a few seconds away from [[facility] She had a cardiac arrest, I am not sure if there was defibr illation, but there was intubation. CPR and pulseless electrical activity and now she has managed to be in sinus rhythm or atrial fibrillation. Heart rate in the 40s. Blood pressure 105/47 to 95/52. Physical Examination: General: The patient is comatose. HEENT: Her eyes are widely fixed and dilated. There are no doll's eyes. I did not do ice water shiva orics. She is posturing, does not appear to be seizing. Breath sounds are equal bilaterally, seems to be mild edema. Skin is warm. Her electrocardiogram showed atrial fib, slow response, left bundle -branch block. Impression: The patient had a cardiac arrest, we will try and learn a little bit more about her hear t, but if her neurological function does not recover there would not be any indication to do any card iac procedures right now. Based on my preliminary assessment, she has extensive neurological damage including brainstem dysfunction, very likely will not be able to recover from this. ABIMAEL/WINSTON Voice ID: [id number] Report ID: [id number]
--- NOTE | 2019-05-25 08:14 | P.CNS ---
Date of Consult: 05/25/19 Chief Complaint: Cardiac arrest History of Present Illness: Patient is 79 years of age lives by herself was found unresponsive by the EMS has been feeling very well aggressive cardiopulmonary resuscitation was started. 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 Allergies levofloxacin [From Levaquin] Allergy (Intermediate, Verified 09/08/12 01:53) Hives/Rash sulfamethoxazole [From Bactrim] Allergy (Intermediate, Verified 09/08/12 01:53) Hives/Rash trimethoprim [From Bactrim] Allergy (Intermediate, Verified 09/08/12 01:53) Hives/Rash - Past Medical/Surgical History Diabetic: Yes -: Heart disease -: Borderline diabetes -: Family denies any surgical history - Family History Sister Medical History: Liver disease - Social History Alcohol use: No CD- Drugs: No Caffeine use: Yes Place of Residence: Home Review of Systems is unable to be obtained Physical Examination Temp Pulse Resp BP Pulse Ox 97.5 F 48 L 18 95/52 L 96 05/25/19 07:15 05/25/19 07:15 05/25/19 07:15 05/25/19 07:15 05/25/19 07:15 General: Comatose Respiratory: Crackles/rales Cardiovascular: No edema, Normal S1 S2 Laboratory Data (last 24 hrs) 05/25/19 00:44: PT 13.8 H, INR 1.18 05/25/19 00:44: WBC 8.9, Hgb 9.6 L, Hct 32.0 L, Plt Count 139 L 05/25/19 00:44: Sodium 141, Potassium 3.5, BUN 39 H, Creatinine 1.59 H, Glucose 398 H, Magnesium 2.1, Total Bilirubin 0.2, AST 49 H, ALT 42, Alkaline Phosphatase 75 - Problems (1) Cardiac arrest with pulseless electrical activity Current Visit: Yes Status: Acute Plan: Patient is 79 years of age with a history of diabetes admitted with a cardiac arrest she is currently coma toes unresponsive chest x-ray most likely shows pulmonary edema and had a cardiac event underlying chronic renal insufficiency and diabetes patient's white count is normal prognosis very poor discuss with the family members consider withdrawal of care was after 24 hr wean off dopamine continue with Levophed titrate sat to 95% at PEEP
[2019-05-25] MEDS ORDERED: ALBUTEROL 2.5 MG/3 ML NEB SOL NEB PRN ×2 (08:15→15:00)
--- NOTE | 2019-05-25 09:23 | CON ---
Mrs. Auguste is in the intensive care unit, comatose, intubated. I am asked to evaluate her heart condition. We do not know much about her past history. No other family members. There is some kind of heart disease, but I do not have any details. The patient called EMS. By the time EMS got there, she was a few seconds away from dying. She had a cardiac arrest, I am not sure if there was defibrillation, but there was intubation. CPR and pulseless electrical activity ,also and now she has managed to be in atrial fibrillation. Heart rate in the 40s. Blood pressure 105/47 to 95/52. Physical Examination: General: The patient is comatose. HEENT: Her eyes are widely fixed and dilated. There are no doll's eyes. I did not do ice water calorics. She is not posturing, does not appear to be seizing. Breath sounds are equal bilaterally, seems to be mild edema. Skin is warm. Her electrocardiogram showed atrial fib, slow response, left bundle- branch block. Impression: The patient had a cardiac arrest, we will try and learn a little bit more about her heart, but if her neurological function does not recover there would not be any indication to do any cardiac procedures right now. Based on my preliminary assessment, she has extensive neurological damage including brainstem dysfunction, very likely will not be able to recover from this. ABIMAEL/WINSTON Voice ID: [id number] Report ID: [id number] TRACEE
[2019-05-25] MEDS: NOREPINEPHRINE 8 MG in Dextrose 5%-Water 500 ML IV PRN ×3 (09:32→19:07)
[2019-05-25 10:51] LABS: Troponin I 2.08 ng/mL (0.0-0.045)
[2019-05-25 10:53] LABS: CKMB Creatine Kinase MB 16.6 ng/mL (0.3-3.6)
[2019-05-25 11:00] LABS: Protime INR 1.48
--- NOTE | 2019-05-25 11:38 | PN ---
Date of Progress Note: 05/25/2019 Code Status: Full. Patient is seen and examined. Chart reviewed and case discussed with RN and Dr. Castrejon. Patient's family at the bedside. Overall, the patient has a very poor prognosis. She has limited brain activity, unresponsive, speaking with the son and the daughter. They do not wish to perform CPR again if the patient codes. They understand that she likely has brain with anoxic brain injury. They are waiting on 2 other siblings that are out of the country at this time. They understand that patient maybe coded at anytime. Medications: List reviewed. Physical Examination: Vital Signs: Temperature 97.3, heart rate 47, blood pressure 105/47, respirations 18, O2 at 95% on ET tube, 100% FiO2. General: Comatose, nonresponsive, elderly female, obese, ill-appearing. CV: S1, S2. Sinus bradycardia. Peripheral pulses weak. Respiratory: Diminished breath sounds. No wheezing or stridor. Gastrointestinal: Abdomen is soft, nondistended. Hypoactive bowel sounds. Extremities: No clubbing or cyanosis. The patient has pedal edema. Neurological: Nonresponsive to painful stimuli. Pupils are fixed and dilated. No doll's eye reaction. No Babinski reflex. The patient is not posturing at this time. Skin: No rashes. Normal skin turgor. Laboratory Data: Sodium 139, potassium 4.1, chloride 101, CO2 of 16, BUN 44, creatinine 1.84, glucose 419, calcium 7.8, phosphorus 8.5. Troponin 1.09. TSH 5.67. ABG; pH is 7.24, improved from 6.75, pCO2 of 36.6, PO2 of 71, bicarb 15. PT, PTT pending. This morning's lab showed INR of 1.29. WBC 8.9, H and H 9.6 and 32, platelets 139. Assessment And Plan: 79-year-old female with: 1. Cardiac arrest with pulseless electrical activity. The patient now in complete heart block, given atropine. May need to be externally paced. The patient was unresponsive, had CPR for approximately 40 minutes with return of circulation. However, patient seems to have suffered anoxic brain injury. Appreciate Dr. Castrejon' input. The patient is unable to receive blood thinners due to hemoptysis. 2. Anoxic brain injury. The patient is nonresponsive, has dilated pupils, which are fixed. EEG is underway. Neurology has been consulted to confirm brain , likely related to cardiac arrest with long period of anoxia. 3. Possible DIC. The patient having bleeding from her mouth, from the rectum as well. We will check DIC markers including PT, PTT, and fibrinogen. Overall , the patient has a very poor prognosis. 4. Apparent history of coronary artery disease. 5. Complete heart block. 6. Normocytic normochromic anemia. 7. Borderline diabetes. 8. Severe metabolic acidosis from anoxia, pH is improved. We will continue with bicarb drip. 9. Acute kidney injury. 10. Multiorgan failure including kidneys, heart, and lungs. 11. Acute respiratory failure with hypoxia and hypercapnia. 12. Elevated troponin level likely secondary to cardiac arrest and resultant CPR. 13. Hypertensive shock. The patient is on 2 pressors including dopamine. We will try to wean off as tolerated. Plan: Spoke with the family at length including the son and the daughter. The patient is . There were 2 other children who are out of the country at this time who have been informed by the [employer] and are making their way back. The children at this time do not wish to pursue any further CPR or heroic measures that the patient has another code blue or has another cardiac arrest. They understand the patient is brain , is nonresponsive, and will likely not survive this hospitalization. Overall, very poor prognosis. Would recommend withdrawal of care. EEG pending. ADDENDUM: Spoke with Dr. Monae and reviewed EEG with him. Shows no activity. consistent with brain . Patients temperature is within normal range. She is on 2 pressors maxed and will likely need external pacing due to complete heart block. Her O2 saturations are dropping on 100% FiO2 via ventilator. Spoke with extended family and discussed code status and withdrawal of care. They are still wanting to discuss with the two daughters that are out of the country before making any decisions. They understand that she could have another cardiac arrest. They do not want to repeat any CPR which would be futile. Time spent 37 minutes SA/MODL Voice ID: [id number] Report ID: [id number] TRACEE
--- NOTE | 2019-05-25 12:29 | EEG ---
CHART: [id number] TEST ID#: [id number] DATE OF STUDY: 05/25/2019 THE EEG WAS RECORDED PORTABLE IN THE ICU ON A 15 CHANNEL MACHINE. ELECTRODES WERE APPLIED IN THE USUAL MANNER USING THE INTERNATIONAL 10-20 SYSTEM. THERE IS NO ACTIVITY OF ELECTROCEREBRAL ORIGIN. EKG ARTIFACT IDENTIFIED. THERE IS NO CHANGE IN THE EEG WITH NOXIOUS STIMULATION. ARTIFACT OF STERNAL RUB IDENTIFIED. IMPRESSION: THIS IS A SEVERELY ABNORMAL EEG DUE TO THE ABSENCE OF ELECTROCEREBRAL ACTIVITY. IN THE ABSENCE OF SEVERE HYPOTHERMIA/ OR DEEP SEDATING MEDICATIONS, THIS FINDING INDICATES BRAIN .
--- NOTE | 2019-05-25 13:49 | ECHO ---
HEIGHT: 5 ft 4 in WEIGHT: 204 lb 4.8 oz DATE OF STUDY: 05/25/[address]: Shady Romo MD 2-DIMENSIONAL: YES M.MODE: YES DOPPLER: YES COLOR FLOW: YES TDS: NO PORTABLE: YES DEFINITY: NO BUBBLE STUDY: NO DIAGNOSIS: CARDIAC ARREST CARDIAC HISTORY: CATHERIZATION: SURGERY: PROSTHETIC VALVE: PACEMAKER: MEASUREMENTS (cm) DIASTOLIC (NORMALS) SYSTOLIC (NORMALS) IVSd 1.2 (0.6-1.2) LA Diam 3.3 (1.9-4.0) LVEF 55% LVIDd 4.1 (3.5-5.7) LVIDs 3.0 (2.0-3.5) %FS 28% LVPWd 1.3 (0.6-1.2) Ao Diam 2.5 (2.0-3.7) 2 DIMENSIONAL ASSESSMENT: RIGHT ATRIUM: NORMAL LEFT ATRIUM: NORMAL RIGHT VENTRICLE: NORMAL LEFT VENTRICLE: LEFT VENTRICULAR HYPERTROPHY TRICUSPID VALVE: NORMAL MITRAL VALVE: NORMAL PULMONIC VALVE: NORMAL AORTIC VALVE: NORMAL PERICARDIAL EFFUSION: NONE AORTIC ROOT: NORMAL LEFT VENTRICULAR WALL MOTION: PARADOXICAL SEPTAL MOTION SEEN WITH LEFT BUNDLE BRANCH BLOCK. DOPPLER/COLOR FLOW: MILD TRICUSPID REGURGITATION. NORMAL RIGHT VENTRICULAR SYSTOLIC PRESSURE. COMMENTS: NORMAL LEFT EJECTION FRACTION. PARADOXICAL SEPTAL MOTION. LEFT VENTRICULAR HYPERTROPHY. ATRIAL FIBRILLATION. 50 - 60 BEATS PER MINUTE. TECHNOLOGIST: Luke MOORE
[2019-05-25] MEDS ORDERED: ACETAMINOPHEN 325 MG TABLET ONE (18:11)
[2019-05-25 19:10] LABS: CKMB Creatine Kinase MB 18.3 ng/mL (0.3-3.6); Troponin I 1.93 ng/mL (0.0-0.045)
--- NOTE | 2019-05-25 19:58 | P.PN ---
Date of Service: 05/25/19 Discussion with daughter and remainder of family members regarding code status. They agree to DNAR. They understand that performing CPR on the patient is futile will cause further harm in a already brain person. Daughter still does not want to withdraw care. She is waiting on 2 other sisters to come back from out of the country.
[2019-05-26] MEDS: NOREPINEPHRINE 8 MG in Dextrose 5%-Water 500 ML IV PRN ×4 (00:06→14:56)
[2019-05-26] MEDS: INSULIN -REGULAR HUMAN 50 UNIT/0.5 ML ML SQ SCH ×4 (00:07→17:07)
[2019-05-26] MEDS: PIPER/TAZO/NS 2.25gm 2.25 GM/50 ML BAG IV SCH ×4 (00:07→17:07)
[2019-05-26] MEDS: IPRATROPIUM BROM 0.5MG/2.5ML NEB SCH ×3 (02:00→14:45)
[2019-05-26] MEDS: DOPAMINE/D5W 400 MG/250 ML BAG IV PRN ×4 (03:41→15:42)
[2019-05-26 05:35] LABS: Absolute Lymphocytes (CBC) 1.4 K/uL (0.7-4.9); Basophils % 0.1 % (0-1.3); Hematocrit 34.9 % (36.0-45.0); Lymphocytes % 18.5 % (15.3-44.8); MPV 10.2 fL (7.6-11.3)
[2019-05-26 05:42] VITALS: BMI 36.0
[2019-05-26 05:49] LABS: Phosphorus 6.9 mg/dL (2.5-4.9); Potassium 3.3 mmol/L (3.5-5.1)
[2019-05-26 05:51] LABS: Magnesium 1.1 mg/dL (1.8-2.4)
[2019-05-26] MEDS ORDERED: Magnesium Sulfate 2gm IVPB 2 G/50 ML BAG IV ONE (05:53)
[2019-05-26] MEDS ORDERED: CALCIUM GLUC 10% INJ 9.3 MEQ in NA CHLORIDE 0.9% 100 ML IV ONE (06:48)
[2019-05-26 08:57] VITALS: TEMP 97.4
--- NOTE | 2019-05-26 09:21 | PN ---
Ms. Auguste seems to have severe neurological injury. I believe the clinical diagnosis is brain , although I am not sure it is a severe injury with likely brain . In any event she is do not re suscitate. I think her chance of recovering from this is close to 0. I do not have any plans to do any cardiac interventions. ABIMAEL/WINSTON Voice ID: [id number] Report ID: [id number]
--- NOTE | 2019-05-26 10:01 | P.PN ---
Date of Service: 05/26/19 Met with patients daughter, next of kin. She wishes to keep patient on life support measures but agrees to DNAR. Patient to be started on 3rd pressor. Case discussed with Dr. Romo. Refer to ethics committee
--- NOTE | 2019-05-26 11:00 | PN ---
Date of Progress Note: 05/26/2019 Subjective: Patient seen and examined. Chart reviewed and case discussed with RN and spoke with daughter. Medications: List reviewed. Physical Examination: Vital Signs: Temperature 97.4, heart rate 103, respirations 18, blood pressure 97/49, O2 at 98% on 100% FiO2. General: Nonresponsive. CV: S1, S2. Respiratory: Diminished breath sounds. Gastrointestinal: Abdomen is soft, nondistended. Extremities: No clubbing or cyanosis. The patient has edema. Neuro: The patient has fixed dilated pupils. No response to external stimulus. Has no Babinski reflex indicating brainstem malfunction. Laboratory Data: Sodium 130, potassium 3.3, chloride 94, CO2 of 19, BUN 47, creatinine 3.78, glucose 226. WBC 7.9, H and H 11.4 and 34.9, platelets 121. Assessment: A 79-year-old female with: 1. Cardiac arrest with pulseless electrical activity. Patient had prolonged CPR with return of spontaneous circulation. However, the patient has suffered anoxic brain injury. 2. Anoxic brain injury. EEG shows a flat line consistent with brain . The patient is not on any sedation. Temperature is normal. 3. DIC. The patient has diffuse bleeding from several orifices. 4. Multiorgan failure including lungs, kidneys, heart, respiratory. 5. Acute respiratory failure with hypoxia. 6. Hypotensive shock on multiple pressors. 7. Elevated troponin secondary to cardiac arrest and heart issue. 8. Severe metabolic acidosis. 9. Borderline diabetes. 10. NSTEMI 11. Apparent history of CAD. Plan: Recommend withdrawal of care however family is not willing to withdraw of care at this time. They have been explained thoroughly that this is completely futile. Patient is brain . The consultants including neurologist, cotton breeder, building construction engineer agree that the patient has no chance of survival and obviously is brain . I would recommend this case go to ethics committee as family is not willing to withdraw care on at brain patient and they are wanting to wait for the other 2 sisters who were out of the country at this time, supposedly coming in today. SA/MODL Voice ID: [id number] Report ID: [id number] TRACEE
[2019-05-26 11:34] VITALS: O2SAT 97
--- NOTE | 2019-05-26 15:53 | EKG ---
Test Date: 2019-05-25 Test Time: 06:57:13 Employment Services Director: MARIA LUISA MEASUREMENT RESULTS: Intervals: Rate: 49 [place]: QRSD: 154 QT: 554 QTc: 500 [place]: P: 63 OK: QRS: 104 T: -31 INTERPRETIVE STATEMENTS: Sinus rhythm with high degree AV block Right bundle branch block T wave abnormality, consider inferior ischemia Abnormal ECG Compared to ECG 05/25/2019 00:07:08 Right bundle-branch block now present T-wave abnormality now present Atrial fibrillation no longer present Electronically Signed On 05-26-19 15:52:28 CDT by Dennys Castrejon
[2019-05-26] MEDS ORDERED: SODIUM CHL 0.9% 1000 ML BAG IV ONE (16:17)
[2019-05-26] MEDS ORDERED: EPINEPHrine 1 MG/10 ML SYR IV ONE (16:17)
[2019-05-26] MEDS ORDERED: VANCOMYCIN 1.5 GM in NA CHLORIDE 0.9% 500 ML IVPB SCH ×2 (17:00→18:00)
[2019-05-26 17:05] VITALS: BP 84/65
--- NOTE | 2019-05-27 12:31 | DS ---
Date of Discharge: 05/26/2019 Admitting Diagnoses: 1. Cardiac arrest with pulseless electrical activity. 2. Acute respiratory failure with hypoxia. 3. Diabetes mellitus type 2. 4. Obesity, body mass index 36. 5. Left bundle branch block. 6. Anoxic encephalopathy. 7. Metabolic acidosis. 8. Elevated troponin. Discharge Diagnoses: 1. Cardiac arrest with pulseless electrical activity. 2. Anoxic brain injury with EEG showing flat line consistent with brain . 3. Disseminated intravascular coagulopathy. 4. Multiorgan failure. 5. Acute respiratory failure with hypoxia. 6. Nay-TD-wlbgwdett myocardial infarction. 7. Hypotensive shock. 8. Severe metabolic acidosis with pH of 6.7. 9. Borderline diabetes. 10. Apparent history of coronary artery disease. 11. Hemoptysis Hospital Course: The patient is a 79-year-old female who was admitted to the hospital for cardiac arrest. Patient had a witnessed cardiac arrest and CPR was started by EMS. Patient underwent CPR and resuscitation for approximately 40 minutes. She regained spontaneous circulation in the ER. Patient was in [place]. Patient by that time already had signs of anoxic brain injury. She had severe acidosis with pH of 6.75. She had a coagulopathy with elevated PT. She was in multiorgan failure with kidney failure and respiratory failure. Patient received multiple amps of bicarb. Patient had elevated troponin consistent with NSTEMI. Patient was started on broad-spectrum IV antibiotics, IV fluids. Patient required pressors. She was maxed out on 2 pressors and third pressor was also initiated. Cardiology, Pulmonology, and Neurology were consulted. Cardiology did not recommend any further testing due to anoxic brain injury. EEG was obtained, which showed flat line consistent with brain . Patient did not have any neurological responses. She had fixed dilated pupils. Patient had no doll's eye reaction. There was no Babinski reflex. Patient did not respond to painful stimulus. I discussed the case at length with neurologist, he agreed with brain . Patient's temperature was normal. Her sodium was also normal. Multiple discussions with the family upon multiple occasions, including the daughter and the son privately in the patient's room as well as in the conference room stating the events that led up to patient's current situation. They understand that it was likely a cardiac event or possibly even a pulmonary event or a combination thereof as evidenced by patient 's pink frothy sputum and elevated cardiac enzymes, which led to cardiac arrest , arrhythmia, and even though patient subsequently had return of spontaneous circulation due to severe acidosis, lack of oxygen to the brain for approximately 40 minutes, patient suffered anoxic brain injury consistent with brain . Family at this point were not ready to accept the patient's fate due to the patient being in her usual state of health on the day of admission. Initially they wanted patient to continue resuscitative efforts as they were waiting on 2 other family members, specifically 2 daughters of the patient who were out of the country who had been notified by [place]. Family, including the daughter and the son did agree to do not attempt resuscitation. Witnesses including multiple family members, primary nurse, Kimberly, and secondary nurse Elisa as well. Patient was then may do not attempt resuscitation. The patient did not have any further cardiac arrest. We continued with pressor support, adding a third pressor continued with electrolyte replacement and treatment of her condition despite the patient being brain as family did wish to withdraw care. Once the 2 daughters of the patient came in from out of the country, they immediately asked for withdrawal of care. Withdrawal of care form was signed and patient was at 16:18. For physical exam findings please see progress note dictated on day of discharge. /[place] Voice ID: [id number] Report ID: [id number]
== END 2019-05-26 16:18 | disposition expired ==
LOC: ER 00:05 → ERHOLD 02:22 → 3RD-ICU 02:57
PROVIDERS: ADMIT Internal Medicine; ATTEND Internal Medicine
PROC: 0BH17EZ Insertion of Endotracheal Airway into Trachea, Via Natural or Artificial Opening (ICD-10-PCS; principal; 2019-05-25)
PROC: 5A1945Z Respiratory Ventilation, 24-96 Consecutive Hours (ICD-10-PCS; 2019-05-25)
DX: I21.4 Non-ST elevation (NSTEMI) myocardial infarction (principal); J96.02 Acute respiratory failure with hypercapnia; J96.01 Acute respiratory failure with hypoxia; D65 Disseminated intravascular coagulation [defibrination syndrome]; G93.1 Anoxic brain damage, not elsewhere classified; N17.9 Acute kidney failure, unspecified; E87.2 Acidosis; I44.2 Atrioventricular block, complete; I46.9 Cardiac arrest, cause unspecified; I25.10 Atherosclerotic heart disease of native coronary artery without angina pectoris; E11.9 Type 2 diabetes mellitus without complications; E66.9 Obesity, unspecified; Z68.36 Body mass index [BMI] 36.0-36.9, adult; R57.0 Cardiogenic shock
CPT/HCPCS: 31500; 36415; 71045; 80048; 80076; 81001; 82553; 82805; 82962; 83615; 83735; 83880; 84100; 84439; 84443; 84484; 85025; 85384; 85610; 85730; 87086; 87088; 92950; 93005; 93306; 94002; 94003; 94640; 95816; 99291; J0171; J0461; J0610; J1265; J2370; J3475; J7030; J7060